=== PATIENT | female | born 1985 | race Asian ===

== ENCOUNTER 2018-10-20 06:48 | Emergency (ER) | payer OTHER ==
[2018-10-20 07:28] LABS: URINE BLOOD (Dip) POC Trace-intact (NEGATIVE); URINE GLUCOSE (Dip) POC Negative (NEGATIVE); URINE KETONES (Dip) POC Negative (NEGATIVE); URINE LEUKOCYTE EST (Dip) POC Negative (NEGATIVE); URINE NITRITE (Dip) POC Negative (NEGATIVE); URINE TOTAL PROTEIN POC Negative (NEGATIVE)
[2018-10-20] MEDS: KETOROLAC 60 MG INJ IM (07:36)
[2018-10-20] MEDS: DEXAMETHASONE 10 MG/ML 1 ML INJ IM (07:37)
[2018-10-20] MEDS: ONDANSETRON (ODT) 4 MG TAB ODT (07:37)
[2018-10-20] MEDS: DIAZEPAM 5 MG TAB PO (07:37)
== END 2018-10-20 07:45 | disposition home or self-care (01) ==
LOC: FTE 06:48
DX: M54.5 Low back pain (principal)
CPT/HCPCS: 81003; 81025; 96372; 99284-25